=== PATIENT | female | born 1950 | race American Indian/Alaskan Native ===

== ENCOUNTER 2018-03-20 19:56 | Emergency (ER) | payer OTHER, MEDICAID ==
[~2018-03-20] VITALS: Ht 160 cm; Wt 73.9 kg
[2018-03-20] MEDS ORDERED: NIFEdipine 10 MG CAP PO ONE (21:00)
[2018-03-20 21:34] VITALS: BP 175/95
== END 2018-03-20 21:38 | disposition home or self-care (01) ==
LOC: ER 19:56
DX: S90.31XA Contusion of right foot, initial encounter (principal); I10 Essential (primary) hypertension; X58.XXXA Exposure to other specified factors, initial encounter; Y93.89 Activity, other specified; Y99.8 Other external cause status; Y92.89 Other specified places as the place of occurrence of the external cause
CPT/HCPCS: 73630

== ENCOUNTER → 2018-08-11 | Outpatient (CLI) | payer OTHER, MEDICAID ==
[~2018-08-11] MED LIST: AML5T PO; ATOR20TA50 PO; MET25T PO; PANT40T PO
[2018-08-11 11:26] LABS: Basophils # (auto) 0 uL; Basophils % (auto) 0.7 % (0.0-2.0); Eosinophils # (auto) 0 uL; Hematocrit 42.2 % (36.0-46.0); Hemoglobin 13.9 g/dL (12.2-16.2); Lymphocytes # (auto) 1.2 uL; Lymphocytes % (auto) 26.1 % (10.0-50.0); Mean Corpuscular Hemoglobin 28.9 pg (28.0-32.0); Mean Corpuscular Hgb Conc. 32.9 g/dL (32.0-36.0); Mean Corpuscular Volume 87.8 fL (80.0-100.0); Monocytes # (auto) 0.6 uL; Monocytes % (auto) 11.8 % (0.0-12.0); Neutrophils # (auto) 2.9 uL; Neutrophils % (auto) 61.4 % (37.0-80.0); Nucleated Red Blood Cells % 0.1 %; Platelet Count (auto) 332 10^3/uL (140-450); Red Blood Cells 4.81 10^6/uL (4.0-5.20); Red Cell Distribution Width 14.9 % (11.8-14.3); White Blood Cell 4.7 10^3/uL (4.4-10.8)
[2018-08-11 11:27] LABS: Urine Bacteria NONE SEEN /hpf (None Seen); Urine Blood 1+ /uL (Negative); Urine Specific Gravity 1.019 (1.001-1.035); Urine WBC 17 /hpf (0 - 5)
[2018-08-11 11:44] LABS: Albumin 3.6 g/dL (3.4-5.0); Potassium 4.6 mmol/L (3.5-5.1); Uric Acid 4.6 mg/dL (2.6-6.0)
[2018-08-11 11:50] LABS: BUN/Creatinine Ratio 14.4; Bilirubin, Total 0.4 mg/dL (0.2-1.0); Total Protein 8.7 g/dL (6.4-8.2)
[2018-08-11 11:56] LABS: Folate (Folic Acid) 13.32 ng/mL (5.38-24)
== END | disposition home or self-care (01) ==
LOC: LAB 10:56
PROVIDERS: ATTEND Nurse Practitioner
DX: E78.5 Hyperlipidemia, unspecified (principal)
CPT/HCPCS: 36415; 80053; 80061; 81001; 82306; 82607; 82746; 83036; 84443; 84550; 85025; 86431

== ENCOUNTER → 2018-12-11 | Outpatient (CLI) | payer OTHER, MEDICAID ==
[2018-12-11 08:55] LABS: Basophils # (auto) 0 uL; Basophils % (auto) 0.7 % (0.0-2.0); Eosinophils # (auto) 0 uL; Hematocrit 39.8 % (36.0-46.0); Hemoglobin 13.4 g/dL (12.2-16.2); Lymphocytes # (auto) 1.2 uL; Lymphocytes % (auto) 32.4 % (10.0-50.0); Mean Corpuscular Hemoglobin 29.1 pg (28.0-32.0); Mean Corpuscular Hgb Conc. 33.6 g/dL (32.0-36.0); Mean Corpuscular Volume 86.6 fL (80.0-100.0); Monocytes # (auto) 0.5 uL; Monocytes % (auto) 12.8 % (0.0-12.0); Neutrophils % (auto) 54.1 % (37.0-80.0); Nucleated Red Blood Cells % 0.1 %; Platelet Count (auto) 296 10^3/uL (140-450); Red Cell Distribution Width 14.8 % (11.8-14.3); White Blood Cell 3.7 10^3/uL (4.4-10.8)
[2018-12-11 09:03] LABS: Urine Bacteria FEW /hpf (None Seen); Urine Blood Negative /uL (Negative); Urine Specific Gravity 1.015 (1.001-1.035); Urine WBC 50 /hpf (0 - 5)
[2018-12-11 09:13] LABS: Albumin 3.5 g/dL (3.4-5.0); BUN/Creatinine Ratio 27.5; Calcium 9.1 mg/dL (8.5-10.1); Potassium 4.2 mmol/L (3.5-5.1)
[2018-12-11 09:18] LABS: Bilirubin, Total 0.4 mg/dL (0.2-1.0); Total Protein 8.9 g/dL (6.4-8.2)
== END | disposition home or self-care (01) ==
LOC: LAB 08:27
PROVIDERS: ATTEND Nurse Practitioner
DX: E78.5 Hyperlipidemia, unspecified (principal)
CPT/HCPCS: 36415; 80053; 80061; 81001; 82043; 82306; 83036; 84443; 85025